=== PATIENT | female | born 1990 | race Caucasian/White ===

== ENCOUNTER → 2022-11-26 11:20 | Outpatient (BNVA) | payer BC, SELFPAY | PROVIDERS: Visit Provider Nurse Practitioner Women's Health | DX: Z12.4 Encounter for screening for malignant neoplasm of cervix (principal); F41.9 Anxiety disorder, unspecified; R23.2 Flushing | CPT/HCPCS: 87624 ==

== ENCOUNTER → 2022-12-31 10:00 | Outpatient (BNVA) | payer BC, SELFPAY | PROVIDERS: Visit Provider Nurse Practitioner Women's Health | DX: Z12.4 Encounter for screening for malignant neoplasm of cervix (principal); Z79.899 Other long term (current) drug therapy | CPT/HCPCS: 87624 ==

== ENCOUNTER → 2023-01-21 09:52 | Outpatient (BNVA) | payer BC, SELFPAY | PROVIDERS: PCP Family Medicine; Visit Provider Family Medicine | DX: E03.9 Hypothyroidism, unspecified (principal); F41.9 Anxiety disorder, unspecified; Z00.00 Encounter for general adult medical examination without abnormal findings | CPT/HCPCS: 80053; 80061; 84443; 85025 ==

== ENCOUNTER → 2023-08-09 11:06 | Outpatient (BNVA) | payer BC, SELFPAY | PROVIDERS: PCP Family Medicine; Visit Provider Nurse Practitioner Women's Health | DX: Z30.9 Encounter for contraceptive management, unspecified (principal) | CPT/HCPCS: 76830 ==

== ENCOUNTER 2023-08-26 09:31 | Outpatient (CLI) | payer BC, SELFPAY ==
--- NOTE | 2023-08-26 10:00 | MM_ITS ---
WS: [id number] BILATERAL 3D TOMOSYNTHESIS DIGITAL DIAGNOSTIC MAMMOGRAPHY WITH CAD CLINICAL INFORMATION: N64.4 - Mastodynia HISTORY: RIGHT breast pain COMPARISON: Baseline TECHNIQUE: Bilateral CC, MLO, and ML views. FINDINGS: The breasts are composed of heterogeneous fibroglandular density, which can limit the detection of sm all underlying mass lesions. Ovoid lesion in the lateral RIGHT breast mid depth and posteriorly measu ring 8 to 9 mm. Ultrasound is pending. LEFT breast is unremarkable. ULTRASOUND BREAST RIGHT TECHNIQUE: Ultrasound right breast focused area of concern. CLINICAL INFORMATION: N64.4 - Mastodynia FINDINGS: Ultrasound RIGHT breast outer quadrant and area of concern deep to the areola. Normal underlying pare nchymal tissue deep to the areola. No suspicious lesions in this area. Ultrasound of the outer quadra nt demonstrates a small benign-appearing lymph node measuring 5 x 7 x 9 mm corresponding to the mammo graphic findings. No other suspicious abnormalities. MM/[place] [id number] IMPRESSION: BI-RADS: 2-Benign FOLLOW UP: Age 40 Recommend annual screen mammography age 40
--- NOTE | 2023-08-26 10:30 | US_ITS ---
WS: [id number] BILATERAL 3D TOMOSYNTHESIS DIGITAL DIAGNOSTIC MAMMOGRAPHY WITH CAD CLINICAL INFORMATION: N64.4 - Mastodynia HISTORY: RIGHT breast pain COMPARISON: Baseline TECHNIQUE: Bilateral CC, MLO, and ML views. FINDINGS: The breasts are composed of heterogeneous fibroglandular density, which can limit the detection of sm all underlying mass lesions. Ovoid lesion in the lateral RIGHT breast mid depth and posteriorly measu ring 8 to 9 mm. Ultrasound is pending. LEFT breast is unremarkable. ULTRASOUND BREAST RIGHT TECHNIQUE: Ultrasound right breast focused area of concern. CLINICAL INFORMATION: N64.4 - Mastodynia FINDINGS: Ultrasound RIGHT breast outer quadrant and area of concern deep to the areola. Normal underlying pare nchymal tissue deep to the areola. No suspicious lesions in this area. Ultrasound of the outer quadra nt demonstrates a small benign-appearing lymph node measuring 5 x 7 x 9 mm corresponding to the mammo graphic findings. No other suspicious abnormalities. US/US breast RT limited* [id number] IMPRESSION: BI-RADS: 2-Benign FOLLOW UP: Age 40 Recommend annual screen mammography age 40
== END 2023-08-26 09:32 | disposition home or self-care (01) ==
PROVIDERS: PCP Family Medicine; Visit Provider Nurse Practitioner Women's Health
DX: N64.4 Mastodynia (principal); R92.323 Mammographic fibroglandular density, bilateral breasts
CPT/HCPCS: 76642; 77062; G0279